=== PATIENT | female | born 1945 | race African-American/Black ===

== ENCOUNTER 2023-09-25 15:24 | Inpatient (IN) | payer MEDICARE, SELFPAY ==
[2023-09-25] VITALS (12 sets, daily range): BP systolic 109–146; BP diastolic 60–85; PULSE 99–115; RESP 16–30; TEMP 36.7–37.1; O2SAT 86–100
--- NOTE | ~2023-09-25 | XR_ITS ---
EXAMINATION: XR barium swallow modified DATE: 09/28/2023 14:43 INDICATION: Transient ischemic attack. TECHNIQUE: The patient was given barium-containing material of multiple consistencies to swallow by t crystal speech pathologist while I performed fluoroscopy. Fluoroscopy exposure time was 1.6 minutes. The n umber of fluoroscopy images saved to the PACS was 1. Dose-area product was 1.017 Gy-cm^2. FINDINGS: There is vallecular residue with pudding. IMPRESSION: 1. No aspiration. 2. Please refer to the speech therapy report for recommendations. Reviewed, dictated and finalized at location A.
--- NOTE | ~2023-09-25 | CT_ITS ---
EXAMINATION: CTA chest PE protocol DATE: 09/25/2023 17:45 INDICATION: Tachycardia post hip replacement with COVID TECHNIQUE: Computed tomography (CT) pulmonary angiogram of the chest was performed with 100 mL Omnipa que-350 intravenous contrast. Additional 3D reconstructions utilizing coronal maximum intensity proje ction (MIP) were performed. Automated exposure control and iterative reconstruction technique were em ployed. The dose-length product was 166.42 mGy-cm. COMPARISON: None FINDINGS: No pulmonary embolism. There is a wedge-shaped region of consolidation with volume loss in the provider relations consultant ior posterior basilar segment of the right lower lobe and favor atelectasis over pneumonia. 6 mm inde terminate pulmonary nodule in the inferior right upper lobe. There is additional ill-defined 1.5-2 cm region of groundglass opacity more cephalad in the posterior segment of the right upper lobe. Linear band of discoid atelectasis/scarring in the left lower lobe. No pulmonary edema or pleural effusion. Heart size is normal. Atherosclerotic coronary artery calcifications. Aortic valve calcification. Th oracic aorta is normal in caliber with no dissection. There is prominent atherosclerotic calcificatio n with 70% stenosis along the normal anatomic variant retroesophageal aberrant right subclavian arter y. Visualized upper abdomen is unremarkable. Mild S-shaped curvature of the thoracic spine with mild spondylosis. Chronic appearing T9 compression fracture. IMPRESSION: 1. No pulmonary embolism. 2. Atelectasis with collapse of the posterior basilar segment of the right lower lobe and discoid ate lectasis in the left lower lobe. 3. Indeterminate 6 mm solid nodule and 1.5-2 cm groundglass nodule in the right upper lobe. Recommend 6 month follow-up low-dose noncontrast chest CT. 4. 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 Reviewed, dictated and finalized at location A. IMPRESSION: 1. No pulmonary embolism. 2. Atelectasis with collapse of the posterior basilar segment of the right lowe r lobe and discoid atelectasis in the left lower lobe. 3. Indeterminate 6 mm solid nodule and 1.5-2 cm groundglass nodule in the right upper lobe. Recommend 6 month follow-up low-dose noncontrast chest CT. 4. 70% stenosis along the anatomic variant retroesophageal aberrant right subcl trent artery.
--- NOTE | ~2023-09-25 | MR_ITS ---
MRI of the brain Clinical History: Weakness Technique: Axial and sagittal T1-weighted images were acquired. These were followed by axial T2-weigh scott, diffusion weighted, gradient, and FLAIR images. Findings: There is no acute infarct, acute intracranial hemorrhage, or mass lesion. Focal old right f rontal lobe infarct noted. There are moderate chronic microvascular ischemic changes in the periventr icular white matter bilaterally. Ventricles and subarachnoid spaces are unremarkable. Orbits are unremarkable. Paranasal sinuses and m astoid air cells are essentially clear. Major intracranial flow voids are grossly intact. There is severe degenerative spondylosis of the visualized cervical spine. Sagittal midline structure s otherwise are intact. IMPRESSION: No acute abnormality. 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 Severe degenerative spondylosis of the visualized cervical spine, with probable multilevel spinal can al stenosis throughout the cervical spine. Consider dedicated C-spine MR to further evaluate, as shaw cated. Reviewed, dictated and finalized at location M. IMPRESSION: No acute abnormality. 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 Severe degenerative spondylosis of the visualized cervical spine, with probable multilevel spinal canal stenosis throughout the cervical spine. Consider dedic ated C-spine MR to further evaluate, as indicated.
--- NOTE | ~2023-09-25 | CT_ITS ---
EXAMINATION: CT brain wo con DATE: 09/28/2023 10:36 INDICATION: Left hemiparesis. TECHNIQUE: Computed tomography (CT) of the head was performed without intravenous contrast. The mA wa s adjusted according to patient size. Iterative reconstruction technique was employed. The dose-lengt h product was 605.33 mGy-cm. COMPARISON: Brain MRI 09/27/2023 FINDINGS: There are scattered areas of low attenuation in the cerebral white matter, which is within normal limits for the patient's age. There is an old infarct in right frontal lobe. The ventricles ar e normal in size. There are likely changes of ocular lens replacement surgeries. There is mucosal thi ckening in the paranasal sinuses. There is thickening and sclerosis of the rm of left sphenoid sin us, consistent with chronic sinusitis. 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 The mastoid a ir cells are normal. There is cerumen in the external auditory canals. IMPRESSION: 1. 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 Reviewed, dictated and finalized at location A.
--- NOTE | ~2023-09-25 | XR_ITS ---
4 VIEWS SKULL Ordering provider: Fabio Gotti MD History: . MRI CLEARENCE . Comparison: None. FINDINGS: BONES: No fracture. Low sinuses in the frontal bone area most likely venous lakes. RADIO OPAQUE FOREIGN BODY: Metallic Foreign bodies seen in the left frontal area most likely in the s calp. SOFT TISSUES: Normal. IMPRESSION: Metallic Foreign bodies seen in the left frontal area most likely in the scalp. Reviewed, dictated and finalized at location A.
--- NOTE | ~2023-09-25 | XR_ITS ---
EXAMINATION: XR chest 1V portable DATE: 09/25/2023 16:08 INDICATION: Tachycardia TECHNIQUE: frontal view of the chest was obtained. COMPARISON: None FINDINGS: Linear discoid atelectasis in the left lower lung zone. Oblique wedge-shaped opacity medial right mid to lower lung zone most likely additional atelectasis/scarring although difficult to exclude superim posed pneumonia. No pulmonary edema, pleural effusion or pneumothorax. The cardiomediastinal silhouet te is within normal limits accounting for slight rightward rotation of the patient. IMPRESSION: 1. Wedge-shaped region of consolidation in the right mid to lower lung zone most likely atelectasis a lthough difficult to exclude superimposed pneumonia. Reviewed, dictated and finalized at location A. IMPRESSION: 1. Wedge-shaped region of consolidation in the right mid to lower lung zone mos t likely atelectasis although difficult to exclude superimposed pneumonia.
--- NOTE | ~2023-09-25 | CT_ITS ---
EXAMINATION: CTA BRAIN/CAROTID DATE: 09/29/2023 18:19 INDICATION: Strokelike symptoms with intermittent episodes of left-sided facial droop TECHNIQUE: Computed tomographic angiography (CTA) of the head and neck was performed with 100 mL Omni paque-350 intravenous contrast. Multiplanar reconstructions and maximum intensity projection 3D-recon structions of the carotid arteries and of the intracranial arteries were created by the technologist on a separate workstation. Precontrast CT of the head was also obtained. Automated exposure control and iterative reconstruction technique were employed.The dose-length product was 1511.33 mGy-cm. COMPARISON: 09/28/2023 FINDINGS: Carotid arteries: There is small amount of atherosclerotic plaque with 0% stenosis of the right carotid bulb relative t o normal distal artery lumen diameter (NASCET criteria). There is however adherent intraluminal throm bus attached to the atherosclerotic calcification at the carotid bulb which extends 2.8 cm craniocaud ally along the axis of the vessel and measures up to 4 x 4 mm orthogonal dimensions. There is 75% hiro nosis of the left carotid bulb relative to normal distal artery lumen diameter. Ectatic ascending tho racic aorta measuring up to 4.0 cm. Prominent calcified atherosclerotic plaque at the proximal aspect of an aberrant retroesophageal right subclavian artery with 80-90% stenosis. The left vertebral shell ry occludes near its origin and appears to reconstitute by collaterals at the level of the mid cervic al spine. 1.5 cm groundglass nodule with central cavitation in the right upper lobe. Cervical kyphosi s with severe spondylosis. Head: Small focus of encephalomalacia in the right frontal lobe consistent with old infarct. More posterior in the right frontoparietal region is a small region demonstrating loss of amezcua-white matter differe ntiation which is new since the prior study consistent with acute infarct. No acute intracranial hemo rrhage or abnormal extra axial fluid collection. There is mild scattered white matter hypoattenuation consistent with chronic small vessel ischemic disease. Ventricles are normal and symmetric. No mass /mass effect. Changes of bilateral intraocular lens replacement. The orbits and mastoid air cells are normal. Opacification of the left sphenoid with thickened and sclerotic rm consistent with acute on chronic sinusitis. There is dependently layering fluid/mucus in the left maxillary sinus also cons istent with acute sinusitis. Osteoma in the left ethmoid sinus. Intracranial arteries There is extensive atherosclerotic plaque with no hemodynamically significant stenosis at the bilater al carotid siphons. The right vertebral artery is dominant with diminutive left vertebral artery. The re are no aneurysms identified. The bilateral A1 and right P1 segments are patent. The left posterior cerebral artery is supplied via a patent left posterior communicating artery. There is abrupt occlus ion of a branch of the right middle cerebral artery extending to the region of the previous noted acu te infarct likely secondary to embolized thrombus. Cerebral arterial arborization appears otherwise s ymmetric. IMPRESSION: 1. Small amount of atherosclerotic plaque with 0% stenosis of the right carotid bulb relative to norm al distal artery lumen diameter (NASCET criteria). There is however a 2.8 x 0.4 x 0.4 cm intraluminal thrombus adherent to the plaque which extends distally along the right internal carotid artery and l ikely represents the etiology of thrombus occluding a branch of the right middle cerebral artery with associated acute infarct in the right frontoparietal region. Dr. Weaver discussed these findings w ynes Torrez at 6:35 PM. 2. 75% stenosis of the left carotid bulb relative to normal distal artery lumen diameter. 3. 80-90% stenosis at the proximal aspect of an aberrant retroesophageal right subclavian artery. 4. O
--- NOTE | 2023-09-25 15:39 | ECG_ITS ---
Test Date: 2023-09-25 15:44:51 Measurements Intervals [place] Rate: 114 P: 61 IL: 100 QRS: 30 QRSD: 79 T: 71 QT: 312 QTc: 430 Interpretive Statements SINUS TACHYCARDIA WITH SHORT IL INTERVAL BASELINE ARTIFACT- I, II, III, AVR, AVL, AVF, 1-V6 ABNORMAL ECG No previous ECG available for comparison Electronically Signed On 09-25-2023 15:54:31 CDT by Reji Vogel D.O.
--- NOTE | 2023-09-25 16:16 | ED.GENADULT ---
HPI - General Adult General Chief complaint: Weakness Stated complaint: low O2 sats, lethargy Time Seen by Provider: 09/25/23 16:09 History of Present Illness HPI narrative: 78-year-old female with history of Lambert's esophagitis, COPD, osteopenia, malnutrition presenting to the emergency department for evaluation for worsening shortness of breath. Patient had a recent hip replacement 09/08, patient was diagnosed with COVID on 09/21 Patient denies chest pain but does report worsening shortness of breath and does complain of left hip pain. Related Data Home Medications Medication Instructions Recorded Confirmed Iron 100 Plus 65 mg BYMOUTH DAILY 09/21/23 09/25/23 acetaminophen 325 mg tablet 650 mg PO Q4H PRN Pain (Scale 09/21/23 09/25/23 Score 1-3) albuterol sulfate 90 mcg/actuation 2 puff inhalation Q4H PRN 09/21/23 09/25/23 aerosol inhaler Shortness Of Breath aluminum-mag hydroxide-simethicone 20 ml PO Q6H PRN Indigestion 09/21/23 09/25/23 200 mg-200 mg-20 mg/5 mL oral susp apixaban 2.5 mg tablet 2.5 mg PO BID 09/21/23 09/25/23 calcium carbonate 500 mg-vitamin 1 tablet PO BID 09/21/23 09/25/23 D3 10 mcg (400 unit) tablet (Calcium 500 With D) cholecalciferol (vitamin D3) 125 125 mcg PO DAILY 09/21/23 09/25/23 mcg (5,000 unit) tablet fluticasone propionate 50 2 spray intranasal DAILY 09/21/23 09/25/23 mcg/actuation nasal spray,suspension glycopyrrolate 9 mcg-formoterol 2 puff inhalation BID 09/21/23 09/25/23 4.8 mcg HFA aerosol inhaler mirtazapine 7.5 mg tablet 7.5 mg PO HS 09/21/23 09/25/23 multivitamin 1 tablet PO DAILY 09/21/23 09/25/23 omeprazole 20 mg capsule,delayed 20 mg PO DAILY 09/21/23 09/25/23 release oxycodone 5 mg tablet 2.5 mg PO Q6H PRN Pain 09/21/23 09/25/23 pantoprazole 40 mg tablet,delayed 40 mg PO QAM 09/21/23 09/25/23 release polyethylene glycol 3350 17 gram 17 g PO BID 09/21/23 09/25/23 oral powder packet (Miralax) sennosides 17.2 mg tablet 17.2 mg PO BID 09/21/23 09/25/23 vitamin E 100 unit capsule 100 unit PO DAILY 09/21/23 09/25/23 Allergies Allergy/AdvReac Type Severity Reaction Status Date / Time No Known Allergies Allergy Verified 09/21/23 21:35 Review of Systems Review of Systems: All systems reviewed & are unremarkable except as noted in HPI and below PMFSH Family History Family History Mother Hypertension Asthma Cancer Glaucoma Father Cancer Hypertension Diabetes mellitus Social History Social History Smoking status: Former smoker Alcohol intake: never Substance use: never Do You Feel Safe in your Home?: Yes Lack of Transportation: No Lack of Food: Never True Current Housing: I Have Housing Concerned About Future Housing: No Difficulty Paying Gas/Electric Bills: No Difficulty Paying for Meds: No Currently Unemployed: No Education: Bachelor's Degree Difficulty w/ Childcare or Family Care: No Spiritual care concerns: No Course Course Emergency Course: Patient was admitted to the hospitalist Vital Signs Vital signs: Vital Signs Temperature 98.7 F 09/25/23 15:24 Pulse Rate 115 H 09/25/23 15:24 Respiratory Rate 27 H 09/25/23 15:24 Blood Pressure 135/85 09/25/23 15:24 Pulse Oximetry 96 09/25/23 15:24 Oxygen Delivery Room Air 09/25/23 15:24 Temperature 98.1 F 09/25/23 19:36 Pulse Rate 103 H 09/25/23 19:36 Respiratory Rate 16 09/25/23 19:36 Blood Pressure 109/67 09/25/23 19:36 Pulse Oximetry 100 09/25/23 19:53 Oxygen Delivery Nasal Cannula 09/25/23 19:53 Oxygen Flow Rate 2 09/25/23 19:53 Medical Decision Making MDM Narrative Medical decision making narrative: 78-year-old female present to the emergency department for evaluation for worsening shortness of breath. Patient is afebrile but does have leukocytosis of 12.2 and hemoglobin of 8.2, th
[2023-09-25 17:06] LABS: Basophils Absolute Auto 0.1 K/mm3 (0.0-0.1); Basophils Percent Auto 0.7 % (0.2-1.2); Eosinophils Absolute Auto 0.2 K/mm3 (0-0.3); Hematocrit 25.5 % (37.0-47.0); Hemoglobin 8.2 g/dL (12.0-15.0); Immature Granulocyte Absolute 0.52 K/mm3 (0.00-0.031); Immature Granulocyte Percent A 4.3 % (0-0.5); Lymphocytes Absolute Auto 1.38 K/mm3 (0.9-3.2); Lymphocytes Percent Auto 11.3 % (18.3-44.2); Mean Corpuscular HGB Conc 32.2 g/dl (32-36); Mean Corpuscular Hemoglobin 25.6 pg (26-34); Mean Corpuscular Volume 79.7 fl (80-100); Mean Platelet Volume 8.9 fl (7.4-10.4); Monocytes Absolute Auto 1.3 K/mm3 (0.1-0.6); Monocytes Percent Auto 10.3 % (2.6-8.5); Neutrophils Absolute Auto 8.7 K/mm3 (1.3-6.7); Neutrophils Percent Auto 71.4 % (45.5-73.1); Platelet Count Result 301 k/mm3 (150-375); Red Cell Distribution Width 24.2 % (11.5-14.5); White Blood Count 12.2 K/mm3 (4.5-10.0)
[2023-09-25 17:14] LABS: Alanine Aminotransferase 36 U/L (6-35); Albumin Level 3.5 g/dL (3.5-5.1); Alkaline Phosphatase 105 U/L (38-126); Anion Gap 10 mmol/L (4-12); Aspartate Amino Transferase 54 U/L (14-36); Bilirubin,Total 0.6 mg/dL (0.2-1.3); Blood Urea Nitrogen 7 mg/dL (7-17); Calcium 8.6 mg/dL (8.4-10.2); Carbon Dioxide 23 mmol/L (22-30); Chloride 100 mmol/L (98-107); Estimated CRCL calculation 44 ml/min; Estimated Glomerular Filt Rate > 60; Glucose 83 mg/dL (65-110); Potassium 4.7 mmol/L (3.4-5.0); Sodium 133 mmol/L (137-145)
[2023-09-25 17:42] LABS: Platelet Estimate Adequate (Adequate); Schistocytes None Seen
[2023-09-25 17:43] LABS: Anisocytosis 3+; Hypochromasia 1+
[2023-09-25] MEDS: HYDROcodone/acetaminophen (*CRX) 5-325 MG TABLET 1 TAB PO (17:44)
[2023-09-25] MEDS: dexAMETHasone 2 MG TABLET 6 MG PO (18:53)
--- NOTE | 2023-09-25 19:00 | PC.NURSE ---
tried calling report at this time and was instructed to call back after shift change
[2023-09-25 19:16] LABS: Influenza A QL RT-PCR Negative (Negative); Influenza B QL RT-PCR Negative (Negative); RSV RNA, RT-PCR Negative (Negative); SARS-CoV-2 RNA PCR Positive (Negative)
--- NOTE | 2023-09-25 19:38 | ADMGEN ---
This patient, Maryann Rodriguez, was admitted to Medical Room 254-01. Patient/family oriented to hospital policies and general routines including ID bracelet, bed and alarms, visiting hours, pain management, procedures, bathroom and other care routines, personal items, smoking policy, room service/diet, and visiting hours. Information on how to activate the Rapid Response Team has been discussed. Patient/Family are encouraged to report perceived risks to care and to ask questions if they do not understand what they are told or what they should do.
[2023-09-25] MEDS: AZITHROMYCIN 500 MG/NS 250 ML 500 MG/250 ML BAG 250 MG IVPB (19:59)
--- NOTE | 2023-09-25 21:52 | PM.IMHP ---
H&P: HPI History of Present Illness Date/Time: 09/25/23 23:00 Chief Complaint: Hypoxia. Narrative: This is a pleasant 78-year-old female with chronic obstructive pulmonary disease, Lambert esophagus, gastroesophageal reflux disease, hypertension, and iron deficiency anemia who presented to the emergency department via EMS from [facility] for evaluation of hypoxia. The patient provides the following history. She broke her left hip in a fall on 09/09/2023 which was repaired with hemiarthroplasty at [facility]. During that stay she was also treated for right lower lobe pneumonia and a urinary tract infection. She was discharged to rehab on 09/21/2023 and was diagnosed with COVID the following day. She was reportedly asymptomatic until today she developed respiratory distress and was hypoxic with an SpO2 in the 70s and she was brought in for evaluation. She denies fever, headache, sinus congestion, sore throat, cough, chest pain, pleuritic pain, nausea, vomiting, diarrhea, lower extremity edema, and calf pain. In the ED: She was afebrile on arrival and she is currently requiring 2 L nasal cannula to maintain her SpO2 in the upper 90s. She has been in a sinus tachycardia with rates in the low 100s. Blood pressures have been stable. SARS-CoV-2 by PCR was indeed positive. Labs were significant for a WBC count of 12.2, hemoglobin 8.2, sodium 133, BUN 7, creatinine 0.60, AST 54, ALT 36. Chest CTA showed no evidence of pulmonary embolism but did show atelectasis with collapse of the posterior basal segment of the right lower lobe discoid atelectasis in the left lower lobe. Indeterminate 6 mm solid nodule and 1.5 to 2 cm ground-glass nodule in the right upper lobe were also noted. She was started on dexamethasone, remdesivir, and antibiotics for possible concomitant bacterial pneumonia and she is being admitted in this setting for further treatment. At the time my evaluation she is feeling a bit better. Review of Systems Review of Systems: 12 systems were reviewed and are negative except for as per HPI. [facility] Past Medical History Medical History (Updated 09/25/23 @ 23:44 by Rosio Chan PA-C) Lambert esophagus Chronic obstructive pulmonary disease Gastroesophageal reflux disease Hypertension Iron deficiency anemia Right upper lobe pulmonary nodule (09/25/23) 6 mm solid nodule and 1.5 to 2 cm ground-glass nodule in the right upper lobe. Sickle cell trait Surgical History Surgical History (Updated 09/25/23 @ 23:42 by Rosio Chan PA-C) History of appendectomy History of bilateral cataract extraction History of left hip hemiarthroplasty (08/2023) Family History Family History Mother Hypertension Asthma Cancer Glaucoma Father Cancer Hypertension Diabetes mellitus Social History Social History (Updated 09/25/23 @ 23:44 by Rosio Chan PA-C) Social History: Surrogate medical decision maker: Julieth Rodriguez, daughter. Code status: Full code. Smoking status: Former smoker Alcohol intake: never Substance use: never Do You Feel Safe in your Home?: Yes Lack of Transportation: No Lack of Food: Never True Current Housing: I Have Housing Concerned About Future Housing: No Difficulty Paying Gas/Electric Bills: No Difficulty Paying for Meds: No Currently Unemployed: No Education: Bachelor's Degree Difficulty w/ Childcare or Family Care: No Spiritual care concerns: No Meds Home Medications and Allergies Home Medications Medication Instructions Recorded Confirmed Type Iron 100 Plus 65 mg BYMOUTH DAILY 09/21/23 09/25/23 History acetaminophen 325 mg tablet 650 mg PO Q4H PRN Pain (Scale 09/21/23 09/25/23 History Score 1-3) albuterol sulfate 90 mcg/actuation 2 puff inhalation Q4H PRN 09/21/23 09/25/23 History aerosol inhaler Shortness Of Breath aluminum-mag hydroxide-simethicone 20 ml PO Q6H P
[2023-09-25] MEDS: REMDESIVIR 200 MG/NS 250 ML 200 MG/250 ML BAG 250 MG IVPB (22:37)
[2023-09-26] VITALS (14 sets, daily range): BP systolic 118–138; BP diastolic 65–77; PULSE 81–111; RESP 16–22; TEMP 36.3–36.6; O2SAT 97–100; BMI 15.1
[2023-09-26 01:30] LABS: MRSA (PCR) NOT DETECTED (NOT DETECTE)
[2023-09-26 05:24] LABS: Hemoglobin 8.4 g/dL (12.0-15.0); Mean Corpuscular HGB Conc 32.3 g/dl (32-36); Mean Corpuscular Hemoglobin 25.7 pg (26-34); Mean Corpuscular Volume 79.5 fl (80-100); Mean Platelet Volume 8.7 fl (7.4-10.4); Platelet Count Result 278 k/mm3 (150-375); Red Blood Count 3.27 M/mm3 (4.2-5.4); Red Cell Distribution Width 23.4 % (11.5-14.5); White Blood Count 8.6 K/mm3 (4.5-10.0)
[2023-09-26 05:35] LABS: Alanine Aminotransferase 34 U/L (6-35); Albumin Level 3.4 g/dL (3.5-5.1); Alkaline Phosphatase 109 U/L (38-126); Anion Gap 8 mmol/L (4-12); Aspartate Amino Transferase 39 U/L (14-36); Bilirubin,Total 0.3 mg/dL (0.2-1.3); Blood Urea Nitrogen 10 mg/dL (7-17); CRP 7.6 mg/dL (<1.0); Calcium 8.7 mg/dL (8.4-10.2); Carbon Dioxide 27 mmol/L (22-30); Chloride 99 mmol/L (98-107); Estimated CRCL calculation 39 ml/min; Estimated Glomerular Filt Rate > 60; Glucose 137 mg/dL (65-110); Lactate Dehydrogenase 326 U/L (120-246); Magnesium 1.8 mg/dL (1.6-2.3); Potassium 4.6 mmol/L (3.4-5.0); Sodium 134 mmol/L (137-145)
[2023-09-26 06:46] LABS: Appearance Urine Clear (Clear); Bacteria Urine None Seen /hpf; Bilirubin Urine Negative (Negative); Blood Urine Negative (Negative); Color Urine Yellow (Yellow); Glucose Urine UA Negative (Negative); Ketones Urine Negative (Negative); Leukocyte Esterase Ur Negative LEU/UL (Negative); Nitrate Urine Negative (Negative); Non Pathogenic Casts 0-2; Protein Urine Trace mg/dL (Negative); RBC Urine 0-2 /hpf (0-2); Specific Grav Ur > 1.045 (1.001-1.035); Squamous Epithelial Cell Urine None Seen /hpf (Few); Urobilinogen Urine 0.2 mg/dL (<2.0); WBC Urine 0-5 /hpf (0-3)
[2023-09-26 07:04] LABS: Add Urine Microscopic? YES
--- NOTE | 2023-09-26 07:54 | PM.IMPN ---
Progress Note: A&P Assessment and Plan (1) Acute respiratory failure with hypoxia: Code(s): J96.01 - Acute respiratory failure with hypoxia Status: Acute (2) Chronic obstructive pulmonary disease: Code(s): J44.9 - Chronic obstructive pulmonary disease, unspecified Status: Acute (3) COVID: Code(s): U07.1 - COVID-19 Status: Acute (4) Iron deficiency anemia: Code(s): D50.9 - Iron deficiency anemia, unspecified Status: Acute Plan This is a pleasant 78-year-old female with chronic obstructive pulmonary disease, Lambert esophagus, gastroesophageal reflux disease, hypertension, and iron deficiency anemia who presented to the emergency department via EMS from [facility] for evaluation of hypoxia. The patient provides the following history. She broke her left hip in a fall on 09/09/2023 which was repaired with hemiarthroplasty at [facility]. During that stay she was also treated for right lower lobe pneumonia and a urinary tract infection. She was discharged to rehab on 09/21/2023 and was diagnosed with COVID the following day. She was reportedly asymptomatic until 09/24 she developed respiratory distress and was hypoxic with an SpO2 in the 70s and she was brought in for evaluation. Acute respiratory failure, COPD exacerbation Patient has dyspnea, upon arrival, patient found hypoxemia, patient was on high-flow oxygen in Patient has a history of COPD, conformed COVID infection recently, Patient is found have leukocytosis, CT scan suggest atelectasis bilateral lower lobes Suspecting COPD exacerbation due to COVID infection and possible pneumonia versus better bronchitis Will continue azithromycin and ceftriaxone IV Continue remdesivir IV Start DuoNeb scheduled and albuterol nebulizer. Continue dexamethasone . 6 mg IV daily Continue O2 therapy to keep pulse ox above 92 CT scan reports Indeterminate 6 mm solid nodule and 1.5-2 cm groundglass nodule in the right upper lobe. 6 month follow-up low-dose noncontrast chest CT per PCP, I have discussed with patient about the finding chronic anemia likely worse from recent surgery. Hemoglobin is improving and will be monitored. Continue iron supplementation. Blood pressures have been stable. Oxygen will be weaned as tolerated. Her home medications will be reviewed and resumed as appropriate. Patient on Eliquis 2.5 mg b.i.d. p.o. for DVT prophylaxis Subjective Date/time seen: 09/26/23 07:54 Interval history: I saw exam patient today. Patient feels tired, has cough with scant phlegm, dyspnea is improving. Patient afebrile, blood pressure stable Exam Narrative: GENERAL: Pleasant, in no acute distress. Well-nourished. - EYES: EOMI. Anicteric. - HENT: Moist mucous membranes. - LUNGS: Coarse breath sound bilateral base . - CARDIOVASCULAR: Regular rate and rhythm. No murmur. No JVD. - ABDOMEN: Soft, non-tender and non-distended. No palpable masses. - EXTREMITIES: No edema. Peripheral pulses 2+. Non-tender. - NEUROLOGIC: No focal neurological deficits. CN II-XII grossly intact. General weakness - PSYCHIATRIC: Awake, Alert and oriented x 3. Appropriate mood and affect. - SKIN: No rashes or lesions. Warm. - LYMPH: No cervical lymphadenopathy. Objective Data Vital Signs Vital Signs: Vital Signs - 24 hr 09/25/23 15:24 09/25/23 15:50 09/25/23 17:01 Temperature 98.7 F Pulse Rate 115 H 112 H Respiratory Rate 27 H Blood Pressure 135/85 Pulse Oximetry 96 92 Oxygen Delivery Room Air Room Air Oxygen Flow Rate 09/25/23 15:46 09/25/23 16:01 09/25/23 17:17 Temperature Pulse Rate 114 H 111 H 109 H Respiratory Rate 30 H 22 H 30 H Blood Pressure 146/75 H 137/80 140/76 Pulse Oximetry 92 Oxygen Delivery Oxygen Flow Rate 09/25/23 17:39 09/25/23 17:30 09/25/23 18:56 Temperature Pulse Rate 111 H Respiratory Rate 26 H Blood Pressure 112/60 Pulse Oximetry 100 86 L
[2023-09-26] MEDS: CHOLECALCIFEROL 5,000 UNITS TABLET 5000 UNITS PO (08:22)
[2023-09-26] MEDS: CALCIUM/VITAMIN D 500 MG/5 MCG (200 I.U.) TABLET PO ×2 (08:22→16:54)
[2023-09-26] MEDS: APIXABAN 2.5 MG TABLET PO ×2 (08:22→20:24)
[2023-09-26] MEDS: guaiFENesin 12 HR 600 MG TABCR PO ×2 (08:23→20:24)
[2023-09-26] MEDS: MULTIVITAMINS THERAPEUTIC TAB (*BKC) 1 TABLET PO (08:23)
[2023-09-26] MEDS: PANTOPRAZOLE 40 MG TABLET PO (08:24)
[2023-09-26] MEDS: VITAMIN E 100 UNIT CAPSULE PO (08:24)
[2023-09-26] MEDS: dexAMETHasone SOD PHOS INJ 10 MG/ML 1 ML VIAL 6 MG IV PUSH (08:32)
[2023-09-26 08:41] LABS: Ferritin > 2000.00 ng/mL (11.1-264)
--- NOTE | 2023-09-26 10:29 | PCRCNOTE ---
Window of time for administration has passed. See next scheduled administration.
[2023-09-26] MEDS: ACETAMINOPHEN 325 MG TABLET 650 MG PO (10:30)
[2023-09-26] MEDS: FLUTICASONE PROPIONATE 0.05% NA SPR 16 GM BTL (*BKC) 2 SPRAY NASAL (10:31)
[2023-09-26] MEDS: IPRATROPIUM 0.5 MG/ALBUTEROL SULFATE 2.5 MG AMPUL.NEB 3 ML INHALATION ×2 (13:25→22:19)
[2023-09-26] MEDS: FERROUS GLUCONATE 324 MG TABLET BY MOUTH (15:27)
[2023-09-26] MEDS: polyethylene glycoL 3350 17 GM POWD.PACK PO (16:55)
[2023-09-26] MEDS: AZITHROMYCIN 500 MG/NS 250 ML 500 MG/250 ML BAG 250 MG IVPB (17:01)
[2023-09-26] MEDS: MIRTAZAPINE 7.5 MG TABLET PO (20:24)
[2023-09-26] MEDS: REMDESIVIR 100 MG/NS 250 ML 100 MG/250 ML BAG 250 MG IVPB (21:13)
[2023-09-27] VITALS (17 sets, daily range): BP systolic 121–140; BP diastolic 66–75; PULSE 79–107; RESP 16–22; TEMP 36.5–36.8; O2SAT 96–100
[2023-09-27] MEDS: IPRATROPIUM 0.5 MG/ALBUTEROL SULFATE 2.5 MG AMPUL.NEB 3 ML INHALATION ×4 (02:41→20:46)
[2023-09-27 05:20] LABS: Alanine Aminotransferase 31 U/L (6-35); Albumin Level 3.4 g/dL (3.5-5.1); Alkaline Phosphatase 107 U/L (38-126); Aspartate Amino Transferase 35 U/L (14-36); Bilirubin,Total 0.3 mg/dL (0.2-1.3); INR 1.3; Prothrombin Time 17.1 Seconds (11.1-14.7)
[2023-09-27] MEDS: UMECLIDINIUM/VILANTEROL 62.5-25 MCG ELLIPTA 1 PUFF INHALATION (07:35)
--- NOTE | 2023-09-27 07:51 | PM.IMPN ---
Progress Note: A&P Assessment and Plan (1) Acute respiratory failure with hypoxia: Code(s): J96.01 - Acute respiratory failure with hypoxia Status: Acute (2) Chronic obstructive pulmonary disease: Code(s): J44.9 - Chronic obstructive pulmonary disease, unspecified Status: Acute (3) COVID: Code(s): U07.1 - COVID-19 Status: Acute (4) Iron deficiency anemia: Code(s): D50.9 - Iron deficiency anemia, unspecified Status: Acute Plan This is a pleasant 78-year-old female with chronic obstructive pulmonary disease, Lambert esophagus, gastroesophageal reflux disease, hypertension, and iron deficiency anemia who presented to the emergency department via EMS from [facility] for evaluation of hypoxia. The patient provides the following history. She broke her left hip in a fall on 09/09/2023 which was repaired with hemiarthroplasty at [facility]. During that stay she was also treated for right lower lobe pneumonia and a urinary tract infection. She was discharged to rehab on 09/21/2023 and was diagnosed with COVID the following day. She was reportedly asymptomatic until 09/24 she developed respiratory distress and was hypoxic with an SpO2 in the 70s and she was brought in for evaluation. Acute respiratory failure, COPD exacerbation Patient has dyspnea, upon arrival, patient found hypoxemia, patient was on high-flow oxygen in Patient has a history of COPD, conformed COVID infection recently, Patient is found have leukocytosis, CT scan suggest atelectasis bilateral lower lobes Suspecting COPD exacerbation due to COVID infection and possible pneumonia versus better bronchitis continue azithromycin and ceftriaxone IV Continue remdesivir IV c/w DuoNeb scheduled and albuterol nebulizer. Continue dexamethasone . 6 mg IV daily Continue O2 therapy to keep pulse ox above 92 CT scan reports Indeterminate 6 mm solid nodule and 1.5-2 cm groundglass nodule in the right upper lobe. 6 month follow-up low-dose noncontrast chest CT per PCP, I have discussed with patient about the finding chronic anemia likely worse from recent surgery. Hemoglobin is improving and will be monitored. Continue iron supplementation. Right hand weakness Patient patient noticed weakness of right hand yesterday Need to rule out ACS ordered brain MRI without contrast today. 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 Consult neurologist for evaluation Neuro check q.4 hours Patient is on blood thinner now Blood pressures have been stable. Her home medications will be reviewed and resumed as appropriate. Patient on Eliquis 2.5 mg b.i.d. p.o. for DVT prophylaxis Consult PT OT healthcare technician for evaluation and assisting placement May discharge patient 1-2 days you patient condition continue to improve Subjective Date/time seen: 09/27/23 07:51 Interval history: I saw exam patient today. Patient patient complained of weakness of left hand, that started about yesterday, please showed has dry cough denies dyspnea. Patient denies headache, numbness, difficulty with speaking. Patient afebrile, blood pressure stable Exam Narrative: GENERAL: Pleasant, in no acute distress. Well-nourished. - EYES: EOMI. Anicteric. - HENT: Moist mucous membranes. - LUNGS: Coarse breath sound bilateral base . - CARDIOVASCULAR: Regular rate and rhythm. No murmur. No JVD. - ABDOMEN: Soft, non-tender and non-distended. No palpable masses. - EXTREMITIES: No edema. Peripheral pulses 2+. Non-tender. - NEUROLOGIC: No focal neurological deficits. CN II-XII grossly intact. General weakness. Strength of left hand is weaker than the right - PSYCHIATRIC: Awake, Alert and oriented x 3. Appropriate mood and affect. - SKIN: Left hip surgical wound dry and clean - LYMPH: No cervical lymphadenopathy. Objective Data Vital Signs Vital Signs:
[2023-09-27 09:10] LABS: Anion Gap 11 mmol/L (4-12); Blood Urea Nitrogen 16 mg/dL (7-17); Carbon Dioxide 25 mmol/L (22-30); Chloride 101 mmol/L (98-107); Estimated CRCL calculation 32 ml/min; Estimated Glomerular Filt Rate > 60; Glucose 93 mg/dL (65-110); Potassium 3.9 mmol/L (3.4-5.0); Sodium 137 mmol/L (137-145)
[2023-09-27] MEDS: APIXABAN 2.5 MG TABLET PO ×2 (09:11→20:24)
[2023-09-27] MEDS: MULTIVITAMINS THERAPEUTIC TAB (*BKC) 1 TABLET PO (09:11)
[2023-09-27] MEDS: VITAMIN E 100 UNIT CAPSULE PO (09:11)
[2023-09-27] MEDS: CHOLECALCIFEROL 5,000 UNITS TABLET 5000 UNITS PO (09:11)
[2023-09-27] MEDS: PANTOPRAZOLE 40 MG TABLET PO (09:11)
[2023-09-27] MEDS: guaiFENesin 12 HR 600 MG TABCR PO ×2 (09:11→20:23)
[2023-09-27] MEDS: ACETAMINOPHEN 325 MG TABLET 650 MG PO (09:12)
[2023-09-27] MEDS: FLUTICASONE PROPIONATE 0.05% NA SPR 16 GM BTL (*BKC) 2 SPRAY NASAL (09:12)
[2023-09-27] MEDS: CALCIUM/VITAMIN D 500 MG/5 MCG (200 I.U.) TABLET PO ×2 (09:12→17:10)
[2023-09-27] MEDS: dexAMETHasone SOD PHOS INJ 10 MG/ML 1 ML VIAL 6 MG IV PUSH (09:12)
--- NOTE | 2023-09-27 12:51 | WPDNEURCNPN ---
Consult date: 09/27/23 HPI: Maryann Rodriguez is a 78 year old female Admitted to the hospital through the emergency room with ongoing diagnosis of Lambert's esophagitis, COPD, osteopenia, and malnutrition and recent complaint of worsening shortness of breath. Patient was recently diagnosed to have COVID on 09/21 and has had the hip replacement on 09/08 she has been taking multiple medications as outlined, former smoker no alcohol intake or at the time of initial evaluation vital signs were normal except respiration rate of 27 on nasal cannula oxygen CBC was with hemoglobin of 8.2 and BMP with sodium of 133, x-ray of the chest with wedge-shaped region of consolidation in the right mid and lower lung zone raising the possibility of atelectasis and CTA of the chest with 70% stenosis along the anatomic variant re to severe digital aberrant right subclavian artery. She was brought to the ER by the EMS from [facility] her , arthroplasty was done at [facility] where she was also treated for a right lower lobe pneumonia and UTI ,in the ER subsequent chest x-ray ,patient was started on dexamethasone, remdesivir and antibiotic,MRI of the brain has been done on September 27, 2023 which documented old right frontal lobe focal infarct and moderate microvascular ischemic changes incidentally she has been found to have multilevel spinal cord stenosis throughout the cervical spine for which MRI has been suggested, and she will Review of Systems Review of Systems: All systems reviewed & are unremarkable except as noted in HPI and below PMFSH Past Medical History Medical History (Updated 09/25/23 @ 23:44 by Rosio Chan PA-C) Lambert esophagus Chronic obstructive pulmonary disease Gastroesophageal reflux disease Hypertension Iron deficiency anemia Right upper lobe pulmonary nodule (09/25/23) 6 mm solid nodule and 1.5 to 2 cm ground-glass nodule in the right upper lobe. Sickle cell trait Surgical History Surgical History (Updated 09/25/23 @ 23:42 by Rosio Chan PA-C) History of appendectomy History of bilateral cataract extraction History of left hip hemiarthroplasty (08/2023) Family History Family History Mother Hypertension Asthma Cancer Glaucoma Father Cancer Hypertension Diabetes mellitus Social History Social History (Updated 09/25/23 @ 23:44 by Rosio Chan PA-C) Social History: Surrogate medical decision maker: Julieth Rodriguez, daughter. Code status: Full code. Smoking status: Former smoker Alcohol intake: never Substance use: never Do You Feel Safe in your Home?: Yes Lack of Transportation: No Lack of Food: Never True Current Housing: I Have Housing Concerned About Future Housing: No Difficulty Paying Gas/Electric Bills: No Difficulty Paying for Meds: No Currently Unemployed: No Education: Bachelor's Degree Difficulty w/ Childcare or Family Care: No Spiritual care concerns: No Meds Home Medications and Allergies Home Medications Medication Instructions Recorded Confirmed Type Iron 100 Plus 65 mg BYMOUTH DAILY 09/21/23 09/25/23 History acetaminophen 325 mg tablet 650 mg PO Q4H PRN Pain (Scale 09/21/23 09/25/23 History Score 1-3) albuterol sulfate 90 mcg/actuation 2 puff inhalation Q4H PRN 09/21/23 09/25/23 History aerosol inhaler Shortness Of Breath aluminum-mag hydroxide-simethicone 20 ml PO Q6H PRN Indigestion 09/21/23 09/25/23 History 200 mg-200 mg-20 mg/5 mL oral susp apixaban 2.5 mg tablet 2.5 mg PO BID 09/21/23 09/25/23 History calcium carbonate 500 mg-vitamin 1 tablet PO BID 09/21/23 09/25/23 History D3 10 mcg (400 unit) tablet (Calcium 500 With D) cholecalciferol (vitamin D3) 125 125 mcg PO DAILY 09/21/23 09/25/23 History mcg (5,000 unit) tablet fluticasone propionate 50 2 spray intranasal DAILY 09/21/23 09/25/23 History mcg/actuation nasal spray,suspension glycopyrrolate 9 mcg
[2023-09-27] MEDS: FERROUS GLUCONATE 324 MG TABLET BY MOUTH (12:53)
[2023-09-27 13:51] LABS: Basophils Percent Auto 0.1 % (0.2-1.2); Hematocrit 24.5 % (37.0-47.0); Hemoglobin 7.8 g/dL (12.0-15.0); Immature Granulocyte Absolute 0.13 K/mm3 (0.00-0.031); Immature Granulocyte Percent A 1.3 % (0-0.5); Lymphocytes Absolute Auto 0.57 K/mm3 (0.9-3.2); Lymphocytes Percent Auto 5.5 % (18.3-44.2); Mean Corpuscular HGB Conc 31.8 g/dl (32-36); Mean Corpuscular Hemoglobin 25.2 pg (26-34); Mean Corpuscular Volume 79.3 fl (80-100); Mean Platelet Volume 9.3 fl (7.4-10.4); Monocytes Absolute Auto 0.3 K/mm3 (0.1-0.6); Monocytes Percent Auto 2.5 % (2.6-8.5); Neutrophils Absolute Auto 9.3 K/mm3 (1.3-6.7); Neutrophils Percent Auto 90.6 % (45.5-73.1); Platelet Count Result 312 k/mm3 (150-375); Red Blood Count 3.09 M/mm3 (4.2-5.4); Red Cell Distribution Width 23.2 % (11.5-14.5); White Blood Count 10.3 K/mm3 (4.5-10.0)
[2023-09-27 14:16] LABS: Platelet Estimate Adequate (Adequate); Schistocytes None Seen
[2023-09-27 14:17] LABS: Anisocytosis 3+
[2023-09-27 14:18] LABS: Hypochromasia 1+
[2023-09-27] MEDS: AZITHROMYCIN 500 MG/NS 250 ML 500 MG/250 ML BAG 250 MG IVPB (17:56)
[2023-09-27] MEDS: MIRTAZAPINE 7.5 MG TABLET PO (20:24)
[2023-09-27] MEDS: REMDESIVIR 100 MG/NS 250 ML 100 MG/250 ML BAG 250 MG IVPB (21:09)
[2023-09-28] VITALS (17 sets, daily range): BP systolic 113–136; BP diastolic 61–81; PULSE 75–121; RESP 10–21; TEMP 36.6–37.1; O2SAT 98–100
[2023-09-28] MEDS: IPRATROPIUM 0.5 MG/ALBUTEROL SULFATE 2.5 MG AMPUL.NEB 3 ML INHALATION ×2 (02:30→08:20)
[2023-09-28 06:24] LABS: Basophils Percent Auto 0.5 % (0.2-1.2); Eosinophils Percent Auto 0.3 % (0-4.4); Hemoglobin 7.1 g/dL (12.0-15.0); Immature Granulocyte Absolute 0.06 K/mm3 (0.00-0.031); Immature Granulocyte Percent A 0.8 % (0-0.5); Lymphocytes Absolute Auto 1.74 K/mm3 (0.9-3.2); Lymphocytes Percent Auto 22.7 % (18.3-44.2); Mean Corpuscular HGB Conc 32.3 g/dl (32-36); Mean Corpuscular Volume 77.5 fl (80-100); Mean Platelet Volume 8.8 fl (7.4-10.4); Monocytes Percent Auto 13.4 % (2.6-8.5); Neutrophils Absolute Auto 4.8 K/mm3 (1.3-6.7); Neutrophils Percent Auto 62.3 % (45.5-73.1); Platelet Count Result 265 k/mm3 (150-375); Red Blood Count 2.84 M/mm3 (4.2-5.4); Red Cell Distribution Width 22.7 % (11.5-14.5); White Blood Count 7.7 K/mm3 (4.5-10.0)
[2023-09-28 06:47] LABS: Anion Gap 8 mmol/L (4-12); Blood Urea Nitrogen 13 mg/dL (7-17); Calcium 8.7 mg/dL (8.4-10.2); Carbon Dioxide 25 mmol/L (22-30); Chloride 103 mmol/L (98-107); Estimated CRCL calculation 36 ml/min; Estimated Glomerular Filt Rate > 60; Glucose 78 mg/dL (65-110); Potassium 3.6 mmol/L (3.4-5.0); Sodium 136 mmol/L (137-145)
[2023-09-28 07:01] LABS: Hypochromasia 1+; Platelet Estimate Adequate (Adequate)
[2023-09-28 07:02] LABS: Anisocytosis 2+; Schistocytes Rare; Target Cells 1+
--- NOTE | 2023-09-28 07:54 | P.PNIM_ITS ---
Progress Note: A&P Assessment and Plan (1) Acute respiratory failure with hypoxia: Code(s): J96.01 - Acute respiratory failure with hypoxia Status: Acute (2) Chronic obstructive pulmonary disease: Code(s): J44.9 - Chronic obstructive pulmonary disease, unspecified Status: Acute (3) COVID: Code(s): U07.1 - COVID-19 Status: Acute (4) Iron deficiency anemia: Code(s): D50.9 - Iron deficiency anemia, unspecified Status: Acute (5) Malnutrition: Qualifiers: Malnutrition type: protein-calorie malnutrition Protein-calorie malnutrition severity: moderate Qualified Code(s): E44.0 - Moderate protein- calorie malnutrition Code(s): E46 - Unspecified protein-calorie malnutrition Status: Acute (6) Left-sided weakness: Code(s): R53.1 - Weakness Status: Acute Plan Left sided Weakness * 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 Augmentin * CTA showing lower atelectasis and 6 mm nodule of the right upper lobe will need follow-up in 6 months * CTA negative for PE * Sputum cultures pending COVID * Supportive care. * Decadron 6 mg daily * remdesivir for 5 days for patient with high risk for hypoxemia * supplemental oxygen as needed to maintain 90% oxygen saturation * monitor LFTs daily * incentive spirometer while awake * DuoNebs * initiate antibiotic therapy if suspicion of bacterial * guaifenesin scheduled for cough * gentle IV hydration keep patient dry * D-dimer/CTA Negative for PE * PT/OT COPD * Bronchodilators. * CTA atelectasis likely COPD exacerbation with underlying COVID-19 * incentive spirometry while awake. * steroids initiated * azithromycin 500 x 1 day/250 daily * supplemental oxygen therapy to maintain oxygen 92% Anemia * Patient with history of anemia * HGB 7.1 09/28/2023 * Transfuse PRBC if Hgb <7.0 * Drop possibly secondary to recent LT hip Surgery * Continue iron supplements * May need to hold Eliquis 2.5 if hemoglobin continues to drop Malnutrition to the moderate degree secondary to poor protein and calorie intake * Dietitian consult * And protein shakes HX of LT hip fracture surgery 09/09/2023/PT/OT Code status: Full code per patient DVT prophylaxis: Eliquis 2.5 BID Stress ulcer prophylaxis: Protonix 40 daily PT/OT notes: PT/OT pending Disposition: Patient was admitted to the medical unit with acute respiratory failure with hypoxia secondary to COVID-19 and COPD exacerbation will continue with current treatment PT OT for evaluation plan will likely be for patient to return to [facility] services when medically stable. Also doing TIA/Stroke work-up for left sided deficits. Time Spent With Patient Time with patient: 15 - 25 minutes Subjective Date/time seen: 09/28/23 07:54 Interval history: Admission: his is a pleasant 78-year-old female with chronic obstructive pulmonary disease, Lambert esophagus, gastroesophageal ref
--- NOTE | 2023-09-28 07:54 | PM.IMPN ---
Progress Note: A&P Assessment and Plan (1) Acute respiratory failure with hypoxia: Code(s): J96.01 - Acute respiratory failure with hypoxia Status: Acute (2) Chronic obstructive pulmonary disease: Code(s): J44.9 - Chronic obstructive pulmonary disease, unspecified Status: Acute (3) COVID: Code(s): U07.1 - COVID-19 Status: Acute (4) Iron deficiency anemia: Code(s): D50.9 - Iron deficiency anemia, unspecified Status: Acute (5) Malnutrition: Qualifiers: Malnutrition type: protein-calorie malnutrition Protein-calorie malnutrition severity: moderate Qualified Code(s): E44.0 - Moderate protein-calorie malnutrition Code(s): E46 - Unspecified protein-calorie malnutrition Status: Acute (6) Left-sided weakness: Code(s): R53.1 - Weakness Status: Acute Plan Left sided Weakness 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 Augmentin CTA showing lower atelectasis and 6 mm nodule of the right upper lobe will need follow-up in 6 months CTA negative for PE Sputum cultures pending COVID Supportive care. Decadron 6 mg daily remdesivir for 5 days for patient with high risk for hypoxemia supplemental oxygen as needed to maintain 90% oxygen saturation monitor LFTs daily incentive spirometer while awake DuoNebs initiate antibiotic therapy if suspicion of bacterial guaifenesin scheduled for cough gentle IV hydration keep patient dry D-dimer/CTA Negative for PE PT/OT COPD Bronchodilators. CTA atelectasis likely COPD exacerbation with underlying COVID-19 incentive spirometry while awake. steroids initiated azithromycin 500 x 1 day/250 daily supplemental oxygen therapy to maintain oxygen 92% Anemia Patient with history of anemia HGB 7.1 09/28/2023 Transfuse PRBC if Hgb <7.0 Drop possibly secondary to recent LT hip Surgery Continue iron supplements May need to hold Eliquis 2.5 if hemoglobin continues to drop Malnutrition to the moderate degree secondary to poor protein and calorie intake Dietitian consult And protein shakes HX of LT hip fracture surgery 09/09/2023/PT/OT Code status: Full code per patient DVT prophylaxis: Eliquis 2.5 BID Stress ulcer prophylaxis: Protonix 40 daily PT/OT notes: PT/OT pending Disposition: Patient was admitted to the medical unit with acute respiratory failure with hypoxia secondary to COVID-19 and COPD exacerbation will continue with current treatment PT OT for evaluation plan will likely be for patient to return to [facility] services when medically stable. Also doing TIA/Stroke work-up for left sided deficits. Time Spent With Patient Time with patient: 15 - 25 minutes Subjective Date/time seen: 09/28/23 07:54 Interval history: Admission: his is a pleasant 78-year-old female with chronic obstructive pulmonary disease, Lambert esophagus, gastroesophageal reflux disease, hypertension, and iron deficiency anemia who presented to the emergency department via EMS from [facility] for evaluation of hypoxia. The patient provides the following history. She broke her left hip in a fall on 09/09/2023 which was repaired with hemiarthroplasty at [facility]. During that stay she was also treated for right lower lobe pneumonia and a urinary tract infection. She was discharged to rehab on 09/21/2023 and was diagnosed with COVID the following day. She was reportedly asymptomatic until
[2023-09-28] MEDS: UMECLIDINIUM/VILANTEROL 62.5-25 MCG ELLIPTA 1 PUFF INHALATION (08:35)
[2023-09-28] MEDS: guaiFENesin 12 HR 600 MG TABCR PO ×2 (09:52→20:42)
[2023-09-28] MEDS: FERROUS GLUCONATE 324 MG TABLET BY MOUTH ×2 (09:53→18:31)
[2023-09-28] MEDS: VITAMIN E 100 UNIT CAPSULE PO (09:54)
[2023-09-28] MEDS: APIXABAN 2.5 MG TABLET PO ×2 (09:54→20:42)
[2023-09-28] MEDS: CHOLECALCIFEROL 5,000 UNITS TABLET 5000 UNITS PO (09:54)
[2023-09-28] MEDS: dexAMETHasone SOD PHOS INJ 10 MG/ML 1 ML VIAL 6 MG IV PUSH (09:55)
[2023-09-28] MEDS: ACETAMINOPHEN 325 MG TABLET 650 MG PO ×2 (09:55→18:31)
--- NOTE | 2023-09-28 10:05 | PCOTNOTE ---
Upon entry to room for OT treatment, Patients's manager nursing assisting Patient with needs. Patient is having a Left facial droop and being assessed at this time. Patient unavailable to be seen at this time.
[2023-09-28 13:05] LABS: Cholesterol 150 mg/dL (0-200); HDL Direct 34 mg/dL; Triglycerides 90 mg/dL (<150)
[2023-09-28 13:16] LABS: LDL Cholesterol Direct 81 mg/dL
[2023-09-28] MEDS: ALBUTEROL SULFATE (*SP) AEROSOL 1 PUFF 2 PUFF INHALATION ×2 (13:50→21:00)
--- NOTE | 2023-09-28 14:00 | PCOTNOTE ---
Patient unavailable at this time. PT going in to see Patient at this time. PT stated, she was told Patient has been very sleepy today and going to attempt.
[2023-09-28 14:08] LABS: Hemoglobin A1C 4.7 % (<5.7)
--- NOTE | 2023-09-28 15:44 | PCSTNOTE ---
Please refer to the Modified Barium Swallow Evaluation in the EMR. This 78-year-old female patient completed a modified barium swallow study due new stroke-like symptoms which included L facial droop, labial weakness, and leakage of liquids from the mouth. Patient was admitted on 09/25/23 for evaluation of hypoxia. The pt has a history of Lambert esophagus, chronic obstructive pulmonary disease, HTN, and GERD. Trials of purees and thin liquids via straw/spoon/cup edge were administered. During trials of purees and thin liquids no instances of penetration or aspiration were noted. Pt demonstrated good laryngeal elevation and fair clearance of residue. Upon presentation of mixed consistencies, the pt demonstrated an inability to formulate a cohesive bolus resulting in the expulsion out of the oral cavity. Recommendation: Due to poor bolus preparation, it is recommended that the pt be on an IDDSI Level 0 (thin liquid) and IDDSI Level 4 (Pureed) diet. Skilled ST services are no longer needed. Thank you for this referral.
--- NOTE | 2023-09-28 16:34 | WPDNEUROPN ---
Progress Note: A&P Assessment and Plan (1) Difficulty in swallowing: Code(s): R13.10 - Dysphagia, unspecified Status: Acute (2) Lambert esophagus: Code(s): K22.70 - Lambert's esophagus without dysplasia Status: Acute (3) Gastroesophageal reflux disease: Code(s): K21.9 - Gastro-esophageal reflux disease without esophagitis Status: Acute (4) Chronic obstructive pulmonary disease: Code(s): J44.9 - Chronic obstructive pulmonary disease, unspecified Status: Acute (5) Hypertension: Code(s): I10 - Essential (primary) hypertension Status: Acute (6) Stenosis of right subclavian artery: Code(s): I77.1 - Stricture of artery Status: Acute (7) Cerebral infarction: Code(s): I63.9 - Cerebral infarction, unspecified Status: Acute Plan I reviewed the records and MRI films and would suggest a acetylcholine receptor antibody in B12 folic acid level and vitamin-D level and continue other treatment program as before. She does have history of Lambert's esophagus and GE reflux may wonder if this can contribute to and occasional difficulty in swallowing however her barium swallow study was within normal range. I also did not find any significant additional findings I spoke to the nursing staff and discussed these with them. Thank you very much Subjective Date/time seen: 09/28/23 16:34 Interval history: Patient was seen previously by Dr. Urbina. She is 78 years old transfer from rehab facility where she was admitted due to a previous fall on 09/08 leading to a fracture of the left hip. She was admitted with shortness of breath and was found to have evidence for pneumonia and days he also has onto positive for COVID on 09/22/2023 and is currently in isolation. Patient also suspected of having urinary tract infection. MRI of the brain has shown right frontal infarct. Patient was noted to have difficulties the swallowing this morning eye. As the nursing staff. She was slow in swallowing. They got concerned and had a CT scan of brain done which did not show any additional new finding. A barium swallow was also performed which was within normal range. This time the patient is doing better. No difficulty his speech. Review of Systems Review of Systems: No additional symptoms reported by the patient. Exam Narrative: Fully conscious alert oriented to self time place and person. No aphasia or dysarthria. Cranial nerves on individual testing intact. Motor system normal power and tone in both upper lower limbs. No involuntary movements are seen. Objective Data Vital Signs Vital Signs: Vital Signs - 24 hr 09/27/23 20:20 09/27/23 20:15 09/27/23 20:00 Temperature 36.8 C Pulse Rate 81 81 85 Respiratory Rate 17 17 Blood Pressure 121/66 Pulse Oximetry 100 100 Oxygen Delivery Nasal Cannula Oxygen Flow Rate 1 Fraction of Inspired Oxygen 09/28/23 00:04 09/27/23 20:47 09/28/23 02:42 Temperature Pulse Rate 75 79 83 Respiratory Rate 18 18 Blood Pressure Pulse Oximetry Oxygen Delivery Oxygen Flow Rate Fraction of Inspired Oxygen 09/27/23 20:57 09/28/23 02:32 09/28/23 04:00 Temperature Pulse Rate 81 80 88 Respiratory Rate 18 18 Blood Pressure Pulse Oximetry Oxygen Delivery Oxygen Flow Rate Fraction of Inspired Oxygen 09/28/23 05:12 09/28/23 08:20 09/28/23 08:20 Temperature 36.6 C Pulse Rate 91 88 Respiratory Rate 17 18 Blood Pressure 115/61 Pulse Oximetry 98 99 Oxygen Delivery Room Air Oxygen Flow Rate Fraction of Inspired Oxygen 21 09/28/23 08:36 09/28/23 08:00 09/28/23 10:56 Temperature 36.8 C Pulse Rate 93 102 H 87 Respiratory Rate 18 10 L Blood Pressure 136/81 Pulse Oximetry 98 Oxygen Delivery Oxygen Flow Rate Fraction of Inspired Oxygen 09/28/23 09:50 09/28/23 12:00 09/28/23 13:50 Temperature Pulse Rate 90 84 Resp
[2023-09-28 18:22] LABS: Thyroid Stimulating Hormone 0.882 uIU/mL (0.465-4.680)
[2023-09-28] MEDS: CALCIUM/VITAMIN D 500 MG/5 MCG (200 I.U.) TABLET PO (18:31)
[2023-09-28 19:21] LABS: Folic Acid 18.9 ng/mL (2.76->20); Vitamin B12 > 1000.0 pg/mL (239-931)
[2023-09-28] MEDS: AZITHROMYCIN 500 MG/NS 250 ML 500 MG/250 ML BAG 250 MG IVPB (19:39)
[2023-09-28] MEDS: MIRTAZAPINE 7.5 MG TABLET PO (20:42)
[2023-09-28] MEDS: REMDESIVIR 100 MG/NS 250 ML 100 MG/250 ML BAG 250 MG IVPB (21:42)
[2023-09-29] VITALS (8 sets, daily range): BP systolic 116–131; BP diastolic 74–90; PULSE 83–105; RESP 16–20; TEMP 36.7–37.1; O2SAT 95–100
--- NOTE | 2023-09-29 | ECHO_ITS ---
Patient Info Name: Maryann Rodriguez Age: 78 years : 1945 Gender: Female Ht: 64 in Wt: 91 lbs BSA: 1.35 m2 HR: 92 bpm BP: 136 / 88 mmHg Heart Rhythm: Sinus Rhythm Technical Quality: Good Exam Date: 09/29/2023 9:39 AM Exam Location: Echo Lab Patient Status: Inpatient Admit Date: 09/26/2023 Staff Ordering Physician: Angelica Torrez APRN [place] Ironer: Linnea Pickens RDCS Attending Provider: Angelica Torrez APRN Referring Physician: Shan NUNO; Exam Type: CA echo doppler w bubble study Study Info Indications - TIA Complete two-dimensional, color flow and Doppler transthoracic echocardiogram is performed with agitated saline. Summary 1. Normal left ventricular size and hyperdynamic systolic contractility. 2. Mildly sclerotic aortic valve which is not stenotic. 3. Saline contrast injection demonstrates no shunt. 4. Trivial AI otherwise no valvular dysfunction. Left Ventricle Left ventricular chamber dimension is normal. Left ventricular systolic function is hyperdynamic, estimated at >70%. The left ventricular diastolic function is grade I diastolic dysfunction. Right Ventricle Right ventricular chamber dimension is normal. Left Atria Left atrial chamber dimension is normal. Right Atria Right atrial chamber dimension is normal. Atrial Septum Intact interatrial septum visualized by agitated saline imaging. Aortic Valve The aortic valve is trileaflet. There is mild aortic valve sclerosis. There is trace aortic valve regurgitation. Pulmonic Valve The pulmonic valve is not well visualized. Mitral Valve The mitral valve has normal leaflets. Tricuspid Valve The tricuspid valve leaflets are normal. Pericardium/Pleural The pericardium appears normal. Aorta The aortic root size at the sinus of Valsalva is normal. Left Ventricular Outflow Tract Name Value Normal LVOT Doppler LVOT Peak Gradient 2 mmHg LVOT Mean Gradient 1 mmHg LVOT VTI 13 cm LVOT VTI/AV VTI Ratio 0.8 Pulmonic Valve Name Value Normal PV Doppler PV Peak Gradient 3 mmHg Mitral Valve Name Value Normal MV Doppler MV Decel [place] 334 cm/s2 MV PHT 57 ms MV Area (PHT) 3.8 cm2 4.0-5.0 MV Diastolic Function MV E Peak Velocity 66 cm/s MV A Peak Velocity 73 cm/s MV E/A 0.9 MV Decel Time 198 ms MV Annular TDI MV E/e' (Sep
[2023-09-29] MEDS: ALBUTEROL SULFATE (*SP) AEROSOL 1 PUFF 2 PUFF INHALATION ×3 (02:49→13:00)
[2023-09-29 04:39] LABS: Basophils Percent Auto 0.5 % (0.2-1.2); Eosinophils Percent Auto 0.4 % (0-4.4); Hematocrit 24.4 % (37.0-47.0); Hemoglobin 7.8 g/dL (12.0-15.0); Immature Granulocyte Absolute 0.08 K/mm3 (0.00-0.031); Lymphocytes Absolute Auto 2.24 K/mm3 (0.9-3.2); Mean Corpuscular Hemoglobin 25.2 pg (26-34); Mean Platelet Volume 8.7 fl (7.4-10.4); Monocytes Absolute Auto 1.1 K/mm3 (0.1-0.6); Neutrophils Absolute Auto 4.5 K/mm3 (1.3-6.7); Neutrophils Percent Auto 56.1 % (45.5-73.1); Platelet Count Result 281 k/mm3 (150-375); Red Blood Count 3.09 M/mm3 (4.2-5.4); Red Cell Distribution Width 23.3 % (11.5-14.5)
[2023-09-29 04:51] LABS: Alanine Aminotransferase 30 U/L (6-35); Albumin Level 3.4 g/dL (3.5-5.1); Alkaline Phosphatase 100 U/L (38-126); Anion Gap 11 mmol/L (4-12); Aspartate Amino Transferase 33 U/L (14-36); Bilirubin,Total 0.3 mg/dL (0.2-1.3); Blood Urea Nitrogen 11 mg/dL (7-17); Calcium 8.9 mg/dL (8.4-10.2); Carbon Dioxide 24 mmol/L (22-30); Chloride 102 mmol/L (98-107); Estimated CRCL calculation 41 ml/min; Estimated Glomerular Filt Rate > 60; Glucose 84 mg/dL (65-110); Potassium 3.4 mmol/L (3.4-5.0); Sodium 137 mmol/L (137-145)
[2023-09-29 05:05] LABS: INR 1.4; Prothrombin Time 17.7 Seconds (11.1-14.7)
[2023-09-29 05:09] LABS: Anisocytosis 2+; Hypochromasia 1+; Platelet Estimate Adequate (Adequate); Schistocytes Rare; Target Cells 2+
[2023-09-29] MEDS: UMECLIDINIUM/VILANTEROL 62.5-25 MCG ELLIPTA 1 PUFF INHALATION (07:19)
[2023-09-29] MEDS: guaiFENesin 12 HR 600 MG TABCR PO ×2 (08:21→21:15)
[2023-09-29] MEDS: FERROUS GLUCONATE 324 MG TABLET BY MOUTH (08:21)
[2023-09-29] MEDS: APIXABAN 2.5 MG TABLET PO (08:21)
[2023-09-29] MEDS: PANTOPRAZOLE 40 MG TABLET PO (08:21)
[2023-09-29] MEDS: CALCIUM/VITAMIN D 500 MG/5 MCG (200 I.U.) TABLET PO (08:22)
[2023-09-29] MEDS: MULTIVITAMINS THERAPEUTIC TAB (*BKC) 1 TABLET PO (08:22)
[2023-09-29] MEDS: SENNOSIDES 8.6 MG TABLET 17.2 MG PO (08:22)
[2023-09-29] MEDS: VITAMIN E 100 UNIT CAPSULE PO (08:22)
[2023-09-29] MEDS: CHOLECALCIFEROL 5,000 UNITS TABLET 5000 UNITS PO (08:22)
--- NOTE | 2023-09-29 11:22 | P.DS_ITS ---
DS: Admitting Diagnosis Discharge Date 09/29/2023 Admitting Diagnosis Acute respiratory failure with hypoxia DS: Discharge Diagnosis Discharge Diagnosis (1) Acute respiratory failure with hypoxia: Code(s): J96.01 - Acute respiratory failure with hypoxia Status: Acute (2) Chronic obstructive pulmonary disease: Code(s): J44.9 - Chronic obstructive pulmonary disease, unspecified Status: Acute (3) COVID: Code(s): U07.1 - COVID-19 Status: Acute (4) Iron deficiency anemia: Code(s): D50.9 - Iron deficiency anemia, unspecified Status: Acute (5) Malnutrition: Qualifiers: Malnutrition type: protein-calorie malnutrition Protein-calorie malnutrition severity: moderate Qualified Code(s): E44.0 - Moderate protein- calorie malnutrition Code(s): E46 - Unspecified protein-calorie malnutrition Status: Acute (6) Left-sided weakness: Code(s): R53.1 - Weakness Status: Acute Plan Left sided Weakness * 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 Augmentin * CTA showing lower atelectasis and 6 mm nodule of the right upper lobe will need follow-up in 6 months * CTA negative for PE * Sputum cultures pending COVID * Supportive care. * Decadron 6 mg daily * remdesivir for 5 days for patient with high risk for hypoxemia * supplemental oxygen as needed to maintain 90% oxygen saturation * monitor LFTs daily * incentive spirometer while awake * DuoNebs * initiate antibiotic therapy if suspicion of bacterial * guaifenesin scheduled for cough * gentle IV hydration keep patient dry * D-dimer/CTA Negative for PE * PT/OT COPD * Bronchodilators. * CTA atelectasis likely COPD exacerbation with underlying COVID-19 * incentive spirometry while awake. * steroids initiated * azithromycin 500 x 1 day/250 daily * supplemental oxygen therapy to maintain oxygen 92% Anemia * Patient with history of anemia * HGB 7.1 09/28/2023 * Transfuse PRBC if Hgb <7.0 * Drop possibly secondary to recent LT hip Surgery * Continue iron supplements * May need to hold Eliquis 2.5 if hemoglobin continues to drop Malnutrition to the moderate degree secondary to poor protein and calorie intake * Dietitian consult * And protein shakes HX of LT hip fracture surgery 09/09/2023/PT/OT Code status: Full code per patient DVT prophylaxis: Eliquis 2.5 BID Stress ulcer prophylaxis: Protonix 40 daily PT/OT notes: PT/OT pending Disposition: Patient was admitted to the medical unit with acute respiratory failure with hypoxia secondary to COVID-19 and COPD exacerbation will continue with current treatment PT OT for evaluation plan will likely be for patient to return to [facility] services when medically stable. Also doing TIA/Stroke work-up for left sided deficits. DS: Summary Hospital Course Reason for hospitalization: Acute respiratory failure with hypoxia Hospital Course:
--- NOTE | 2023-09-29 11:22 | PM.DS ---
DS: Admitting Diagnosis Discharge Date 09/29/2023 Admitting Diagnosis Acute respiratory failure with hypoxia DS: Discharge Diagnosis Discharge Diagnosis (1) Acute respiratory failure with hypoxia: Code(s): J96.01 - Acute respiratory failure with hypoxia Status: Acute (2) Chronic obstructive pulmonary disease: Code(s): J44.9 - Chronic obstructive pulmonary disease, unspecified Status: Acute (3) COVID: Code(s): U07.1 - COVID-19 Status: Acute (4) Iron deficiency anemia: Code(s): D50.9 - Iron deficiency anemia, unspecified Status: Acute (5) Malnutrition: Qualifiers: Malnutrition type: protein-calorie malnutrition Protein-calorie malnutrition severity: moderate Qualified Code(s): E44.0 - Moderate protein-calorie malnutrition Code(s): E46 - Unspecified protein-calorie malnutrition Status: Acute (6) Left-sided weakness: Code(s): R53.1 - Weakness Status: Acute Plan Left sided Weakness 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 Augmentin CTA showing lower atelectasis and 6 mm nodule of the right upper lobe will need follow-up in 6 months CTA negative for PE Sputum cultures pending COVID Supportive care. Decadron 6 mg daily remdesivir for 5 days for patient with high risk for hypoxemia supplemental oxygen as needed to maintain 90% oxygen saturation monitor LFTs daily incentive spirometer while awake DuoNebs initiate antibiotic therapy if suspicion of bacterial guaifenesin scheduled for cough gentle IV hydration keep patient dry D-dimer/CTA Negative for PE PT/OT COPD Bronchodilators. CTA atelectasis likely COPD exacerbation with underlying COVID-19 incentive spirometry while awake. steroids initiated azithromycin 500 x 1 day/250 daily supplemental oxygen therapy to maintain oxygen 92% Anemia Patient with history of anemia HGB 7.1 09/28/2023 Transfuse PRBC if Hgb <7.0 Drop possibly secondary to recent LT hip Surgery Continue iron supplements May need to hold Eliquis 2.5 if hemoglobin continues to drop Malnutrition to the moderate degree secondary to poor protein and calorie intake Dietitian consult And protein shakes HX of LT hip fracture surgery 09/09/2023/PT/OT Code status: Full code per patient DVT prophylaxis: Eliquis 2.5 BID Stress ulcer prophylaxis: Protonix 40 daily PT/OT notes: PT/OT pending Disposition: Patient was admitted to the medical unit with acute respiratory failure with hypoxia secondary to COVID-19 and COPD exacerbation will continue with current treatment PT OT for evaluation plan will likely be for patient to return to [facility] rehab services when medically stable. Also doing TIA/Stroke work-up for left sided deficits. DS: Summary Hospital Course Reason for hospitalization: Acute respiratory failure with hypoxia Hospital Course: Admission: his is a pleasant 78-year-old female with chronic obstructive pulmonary disease, Lambert esophagus, gastroesophageal reflux disease, hypertension, and iron deficiency anemia who presented to the emergency department via EMS from [facility] for evaluation of hypoxia. The patient provides the following history. She broke her left hip in a fall on 09/09/2023 which was repaired with hemiarthroplasty at [facility]. During that stay she was also treated for right lower lobe pneumonia and a urinary tract infection. She was discha
--- NOTE | 2023-09-29 16:32 | P.PNIM_ITS ---
Progress Note: A&P Assessment and Plan (1) Acute respiratory failure with hypoxia: Code(s): J96.01 - Acute respiratory failure with hypoxia Status: Acute (2) Chronic obstructive pulmonary disease: Code(s): J44.9 - Chronic obstructive pulmonary disease, unspecified Status: Acute (3) COVID: Code(s): U07.1 - COVID-19 Status: Acute (4) Iron deficiency anemia: Code(s): D50.9 - Iron deficiency anemia, unspecified Status: Acute (5) Malnutrition: Qualifiers: Malnutrition type: protein-calorie malnutrition Protein-calorie malnutrition severity: moderate Qualified Code(s): E44.0 - Moderate protein- calorie malnutrition Code(s): E46 - Unspecified protein-calorie malnutrition Status: Acute (6) Left-sided weakness: Code(s): R53.1 - Weakness Status: Acute Plan Left sided Weakness * 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 Augmentin * CTA showing lower atelectasis and 6 mm nodule of the right upper lobe will need follow-up in 6 months * CTA negative for PE * Sputum cultures pending COVID * Supportive care. * Decadron 6 mg daily * remdesivir for 5 days for patient with high risk for hypoxemia * supplemental oxygen as needed to maintain 90% oxygen saturation * monitor LFTs daily * incentive spirometer while awake * DuoNebs * initiate antibiotic therapy if suspicion of bacterial * guaifenesin scheduled for cough * gentle IV hydration keep patient dry * D-dimer/CTA Negative for PE * PT/OT COPD * Bronchodilators. * CTA atelectasis likely COPD exacerbation with underlying COVID-19 * incentive spirometry while awake. * steroids initiated * azithromycin 500 x 1 day/250 daily * supplemental oxygen therapy to maintain oxygen 92% Anemia * Patient with history of anemia * HGB 7.1 09/28/2023 * Transfuse PRBC if Hgb <7.0 * Drop possibly secondary to recent LT hip Surgery * Continue iron supplements * May need to hold Eliquis 2.5 if hemoglobin continues to drop Malnutrition to the moderate degree secondary to poor protein and calorie intake * Dietitian consult * And protein shakes HX of LT hip fracture surgery 09/09/2023/PT/OT Code status: Full code per patient DVT prophylaxis: Eliquis 2.5 BID Stress ulcer prophylaxis: Protonix 40 daily PT/OT notes: PT/OT pending Disposition: Patient was admitted to the medical unit with acute respiratory failure with hypoxia secondary to COVID-19 and COPD exacerbation will continue with current treatment PT OT for evaluation plan will likely be for patient to return to [facility] rehab services when medically stable. Also doing TIA/Stroke work-up for left sided deficits. Subjective Date/time seen: 09/29/23 16:32 Interval history: Admission: his is a pleasant 78-year-old female with chronic obstructive pulmonary disease, Lambert esophagus, gastroesophageal reflux disease, hypertension, and iron deficiency anemia who present
--- NOTE | 2023-09-29 16:32 | PM.IMPN ---
Progress Note: A&P Assessment and Plan (1) Acute respiratory failure with hypoxia: Code(s): J96.01 - Acute respiratory failure with hypoxia Status: Acute (2) Chronic obstructive pulmonary disease: Code(s): J44.9 - Chronic obstructive pulmonary disease, unspecified Status: Acute (3) COVID: Code(s): U07.1 - COVID-19 Status: Acute (4) Iron deficiency anemia: Code(s): D50.9 - Iron deficiency anemia, unspecified Status: Acute (5) Malnutrition: Qualifiers: Malnutrition type: protein-calorie malnutrition Protein-calorie malnutrition severity: moderate Qualified Code(s): E44.0 - Moderate protein-calorie malnutrition Code(s): E46 - Unspecified protein-calorie malnutrition Status: Acute (6) Left-sided weakness: Code(s): R53.1 - Weakness Status: Acute Plan Left sided Weakness 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 Augmentin CTA showing lower atelectasis and 6 mm nodule of the right upper lobe will need follow-up in 6 months CTA negative for PE Sputum cultures pending COVID Supportive care. Decadron 6 mg daily remdesivir for 5 days for patient with high risk for hypoxemia supplemental oxygen as needed to maintain 90% oxygen saturation monitor LFTs daily incentive spirometer while awake DuoNebs initiate antibiotic therapy if suspicion of bacterial guaifenesin scheduled for cough gentle IV hydration keep patient dry D-dimer/CTA Negative for PE PT/OT COPD Bronchodilators. CTA atelectasis likely COPD exacerbation with underlying COVID-19 incentive spirometry while awake. steroids initiated azithromycin 500 x 1 day/250 daily supplemental oxygen therapy to maintain oxygen 92% Anemia Patient with history of anemia HGB 7.1 09/28/2023 Transfuse PRBC if Hgb <7.0 Drop possibly secondary to recent LT hip Surgery Continue iron supplements May need to hold Eliquis 2.5 if hemoglobin continues to drop Malnutrition to the moderate degree secondary to poor protein and calorie intake Dietitian consult And protein shakes HX of LT hip fracture surgery 09/09/2023/PT/OT Code status: Full code per patient DVT prophylaxis: Eliquis 2.5 BID Stress ulcer prophylaxis: Protonix 40 daily PT/OT notes: PT/OT pending Disposition: Patient was admitted to the medical unit with acute respiratory failure with hypoxia secondary to COVID-19 and COPD exacerbation will continue with current treatment PT OT for evaluation plan will likely be for patient to return to [facility] services when medically stable. Also doing TIA/Stroke work-up for left sided deficits. Subjective Date/time seen: 09/29/23 16:32 Interval history: Admission: his is a pleasant 78-year-old female with chronic obstructive pulmonary disease, Lambert esophagus, gastroesophageal reflux disease, hypertension, and iron deficiency anemia who presented to the emergency department via EMS from [facility] for evaluation of hypoxia. The patient provides the following history. She broke her left hip in a fall on 09/09/2023 which was repaired with hemiarthroplasty at [facility]. During that stay she was also treated for right lower lobe pneumonia and a urinary tract infection. She was discharged to rehab on 09/21/2023 and was diagnosed with COVID the following day. She was reportedly asymptomatic until today she developed respiratory distress and was hypoxic with
--- NOTE | 2023-09-29 19:57 | PM.EVENT ---
Event Note Event Note Event Note: Cross Coverage 09/26: Patient reported right hand weakness on 09/25 but reported it to the provider on 09/26. MRI was obtained and Neurology was consulted. Brain MRI w/o con showed: No acute abnormality. 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 Severe degenerative spondylosis of the visualized cervical spine, with probable multilevel spinal canal stenosis throughout the cervical spine. Consider dedicated C-spine MR to further evaluate, as indicated. Per neuro exam patient had generally discrete strength 4-5/5 in upper and lower extremities proximally and distally. Recommended further evaluation of right subclavian artery stenosis once stable/improved. 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 Facial droop, dysarthria, and dysphagia lasted for approximately 20-30 minutes. Left hand decreased security systems integrator strength and dexterity have remained persistent. CT head non con was obtained which showed an old infarct in the right frontal lobe. Neurology assessed patient who obtained a barium swallow which was within normal range. No deficits on exam per Neurology note at 4:34 p.m. 09/28: Nursing staff reached out to [facility]bo nurse practitioner with new neurological findings at 5:45 p.m. Per nursing staff report, patient last seen well at 4:30 p.m. It was then discovered at 5:45 p.m. that the patient patient developed a left lower facial droop with no involvement of the upper face, dysarthria, and observed dysphagia. CTA of the head and neck ordered by bebo AHUMADA which showed: 1. Small amount of atherosclerotic plaque with 0% stenosis of the right carotid bulb relative to normal distal artery lumen diameter (NASCET criteria). There is however a 2.8 x 0.4 x 0.4 cm intraluminal thrombus adherent to the plaque which extends distally along the right internal carotid artery and likely represents the etiology of thrombus occluding a branch of the right middle cerebral artery with associated acute infarct in the right frontoparietal region. Dr. Weaver discussed these findings with Dr. Torrez at 6:35 PM. 2. 75% stenosis of the left carotid bulb relative to normal distal artery lumen diameter. 3. 80-90% stenosis at the proximal aspect of an aberrant retroesophageal right subclavian artery. 4. 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 5. Small old infarct in the right frontal lobe. 6. Indeterminate 1.5 cm round glass opacity with central cavitation in the right upper lobe which could be infectious or malignant in etiology. Recommend 3 month follow-up low-dose noncontrast chest CT . Emergent call to [facility] stroke team was initiated. Spoke with Anjelica PALMER who recommended transfer to their step-down unit, discontinuing Eliquis, and initiating heparin at 12 u/kg/hr without boluses. If PTT >100 then decrease gtt by 1 u/kg, if PTT >120 decrease gtt by 3 u/kg and hold infusion for 1 hour. The patient is currently on [facility] wait list. Additional call made to [facility] Stroke Team, Howard PALMER, who agreed to transfer of patient as well without further recommendations. The patient is also on [facility] wait list. Awaiting transfer. Q2H neurochecks in interim. Discussed this with patient and her daughter. Per daughter, baseline prior to hip fracture was mobile with cane and would utilize a wheelchair if she had to walk long distances. Living independently with daughter to help occasionally with cooking and errands (per daughter done more so to be helpful but the patient could do these things on her own) and was driving until late last year. They are unsure when the Eliquis was initiated, suspect this was DVT prophylaxis post-hip surgery. NIHSS 1a: Level of Co
[2023-09-29 20:23] LABS: INR 1.3; Prothrombin Time 16.7 Seconds (11.1-14.7)
[2023-09-29] MEDS: MIRTAZAPINE 7.5 MG TABLET PO (21:15)
[2023-09-29] MEDS: AZITHROMYCIN 500 MG/NS 250 ML 500 MG/250 ML BAG 250 MG IVPB (21:16)
[2023-09-29] MEDS: REMDESIVIR 100 MG/NS 250 ML 100 MG/250 ML BAG 250 MG IVPB (21:16)
[2023-09-29] MEDS: HEPARIN SOD/D5W 100 UNITS/ML 25,000 UNITS/250 ML BAG IV CONT (21:26)
[2023-09-30] MEDS: ALBUTEROL SULFATE (*SP) AEROSOL 1 PUFF 2 PUFF INHALATION (03:16)
[2023-09-30 03:50] VITALS: BP 140/81; PULSE 90; RESP 20; TEMP 37.3; O2SAT 98
[2023-09-30 04:39] LABS: INR 1.3; Prothrombin Time 16.3 Seconds (11.1-14.7)
[2023-09-30 04:40] LABS: Partial Thromboplastin Time 37.7 Seconds (22.3-36.8)
[2023-09-30 13:28] LABS: Pneumococcal Antigen Urine NOT DETECTED
[2023-10-02 08:08] LABS: Methylmalonic Acid 141 nmol/L (85-423)
[2023-10-03 03:54] LABS: Legionella pneumophila Ag Ur NOT DETECTED
[2023-10-03 18:13] LABS: Mycoplasma IgM Antibody Titer 921 U/mL
--- NOTE | 2023-10-05 17:39 | PM.TDS ---
Transfer Discharge Sum: Prov Provider Date of admission: 09/26/23 09:07 Primary care physician: PHYSICIAN NOT ON STAFF Admitting clinician: Zamzam Jones MD Attending physician on admission: Zamzam Jones Consults: 09/27/23 Consult to Physician Routine Comment: LVM 12:24pm (-US) Consulting Provider: Garry Urbina bilingual call center representative/MD group to consult: neurology Reason for consultation: weakness Has provider been notified: Yes 09/28/23 Consult to Dietitian Routine Reason for Consult:: Malnutrition Attending physician on discharge: Zamzam Jones Discharging clinician: Shama Thomas Anticipated date of transfer: 09/30/23 Receiving physician/facility: [facility])Anjelica MD DS: Admitting Diagnosis Discharge Date 09/30/23 Admitting Diagnosis Acute respiratory failure with hypoxia, COVID DS: Discharge Diagnosis Discharge Diagnosis Plan Acute respiratory failure hypoxia, COVID, left sided weakness Discharge condition: Stable Transfer Discharge Sum: Med Medications Active and Home Medications: Home Medications albuterol sulfate 90 mcg/actuation aerosol inhaler 2 puff inhalation Q4H PRN Shortness Of Breath 09/21/23 [History Confirmed 10/03/23] apixaban 2.5 mg tablet 2.5 mg PO BID 09/21/23 [History Confirmed 10/03/23] cholecalciferol (vitamin D3) 125 mcg (5,000 unit) tablet 125 mcg PO DAILY 09/21/23 [History Confirmed 10/03/23] glycopyrrolate 9 mcg-formoterol 4.8 mcg HFA aerosol inhaler 2 puff inhalation BID 09/21/23 [History Confirmed 10/03/23] mirtazapine 7.5 mg tablet 7.5 mg PO HS 09/21/23 [History Confirmed 10/03/23] pantoprazole 40 mg tablet,delayed release 40 mg PO QAM 09/21/23 [History Confirmed 10/03/23] polyethylene glycol 3350 17 gram oral powder packet (Miralax) 17 g PO BID 09/21/23 [History Confirmed 10/03/23] sennosides 17.2 mg tablet 17.2 mg PO BID 09/21/23 [History Confirmed 10/03/23] aspirin 81 mg chewable tablet 81 mg PO DAILY 10/03/23 [History Confirmed 10/03/23] atorvastatin 40 mg tablet 40 mg PO HS 10/03/23 [History Confirmed 10/03/23] Transfer Discharge Sum: Hosp Hospital Course Hospital course: Initially here for acute respiratory failure with hypoxia secondary to COVID. Improving, anticipated discharge to rehab facility. However on 09/28, nursing staff reached out to [facility] nurse practitioner with new neurological findings at 5:45 p.m. Per nursing staff report, patient last seen well at 4:30 p.m. It was then discovered at 5:45 p.m. that the patient patient developed a left lower facial droop with no involvement of the upper face, dysarthria, and observed dysphagia. CTA of the head and neck ordered by bebo RN MANAGED CARE which showed: 1. Small amount of atherosclerotic plaque with 0% stenosis of the right carotid bulb relative to normal distal artery lumen diameter (NASCET criteria). There is however a 2.8 x 0.4 x 0.4 cm intraluminal thrombus adherent to the plaque which extends distally along the right internal carotid artery and likely represents the etiology of thrombus occluding a branch of the right middle cerebral artery with associated acute infarct in the right frontoparietal region. Dr. Weaver discussed these findings with Dr. Torrez at 6:35 PM. 2. 75% stenosis of the left carotid bulb relative to normal distal artery lumen diameter. 3. 80-90% stenosis at the proximal aspect of an aberrant retroesophageal right subclavian artery. 4. 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 5. Small old infarct in the right frontal lobe. 6. Indeterminate 1.5 cm round glass opacity with central cavitation in the right upper lobe which could be infectious or malignant in etiology. Recommend 3 month follow-up low-dose noncontrast chest CT . Emergent call to [facility] stroke team was initiated. Spoke with Anjelica PALMER who recommended transfer to [facility]
== END 2023-09-30 04:23 | DRG 177 ==
LOC: ANHED 18:22 → ANH2MED 18:48
PROVIDERS: Emergency Medicine; Hospitalist; Nurse Practitioner Family; Physician Assistant; Psychiatry & Neurology Neurology; Admitting Provider General Practice; Emergency Provider Emergency Medicine; Visit Provider Student in an Organized Health Care Education/Training Program
DX: U07.1 COVID-19 (principal); J18.9 Pneumonia, unspecified organism; J96.01 Acute respiratory failure with hypoxia; Z68.1 Body mass index [BMI] 19.9 or less, adult; J44.1 Chronic obstructive pulmonary disease with (acute) exacerbation; E44.0 Moderate protein-calorie malnutrition; M85.80 Other specified disorders of bone density and structure, unspecified site; M47.812 Spondylosis without myelopathy or radiculopathy, cervical region; M48.02 Spinal stenosis, cervical region; K21.9 Gastro-esophageal reflux disease without esophagitis; D50.9 Iron deficiency anemia, unspecified; R91.1 Solitary pulmonary nodule; Z98.42 Cataract extraction status, left eye; Z98.41 Cataract extraction status, right eye; Z90.49 Acquired absence of other specified parts of digestive tract; Z96.642 Presence of left artificial hip joint; R29.810 Facial weakness; R47.1 Dysarthria and anarthria; R13.10 Dysphagia, unspecified
CPT/HCPCS: 36415; 70250; 70450; 70496; 70498; 70551; 71045; 71275; 80048; 80053; 80061; 80076; 81001; 82306; 82607; 82728; 82746; 83036; 83615; 83735; 83921; 84443; 85025; 85027; 85610; 85730; 86140; 86738; 87449; 87637; 87641; 87899; 92611; 93005; 93306; 94640; 94667; 96365; 96367; 96375; 97110; 97161; 97165; 97530; 99285; A9270; G0378; J0248; J0456; J0696; J1100; J1644; J8540; Q9967

== ENCOUNTER 2023-10-18 10:02 | Day surgery (SDC) | payer MEDICARE, SELFPAY ==
--- NOTE | 2023-10-16 12:42 | PC.NURSE ---
Information obtained from patient record and reviewed with charge nurse Daiana at [facility]. Reviewed instructions- Npo after midnight 10/17/2023. to hold Eliquis now until after procedure per Peace Fernandez/Dr. Haji. Pt will come by ambulance and daughter Julieth plans to meet her here with arrival at 1000.
[2023-10-18 10:13] VITALS: BMI 15.9
[2023-10-18 10:14] VITALS: BP 108/82; PULSE 89; RESP 18; TEMP 36; O2SAT 100
--- NOTE | 2023-10-18 10:16 | SUR.PREOP ---
Spoke with RN at [facility], states her eliquis has been held since the . Also verified NPO status since midnight.
[2023-10-18] MEDS: LACTATED RINGERS 1,000 ML 150 ML IV CONT (10:38)
[2023-10-18] MEDS: ceFAZolin 1 GM/NS 50 ML 1 GM/50 ML BAG IVPB (10:39)
--- NOTE | 2023-10-18 10:48 | WPDANESEPPF ---
Anes - Initial Pre Proc Eval Procedure: Operation Date: 10/18/23 12:00 Proposed Procedures p Percutaneous Endoscopic Gastrostomy - Jl Sweet MD Date/Time: 10/18/23 10:48 Surgeon: Jl Sweet MD Pre Op Diagnosis: failed swallow test Patient Data Age: 78 Gender: F Height: 1.63 m Weight: 42 kg Last Vital Signs Temp 96.8 F L 10/18/23 10:14 Pulse 89 10/18/23 10:14 Resp 18 10/18/23 10:14 BP 108/82 10/18/23 10:14 Pulse Ox 100 10/18/23 10:14 O2 Del Method Room Air 10/18/23 10:14 Allergies Allergy/AdvReac Type Severity Reaction Status Date / Time No Known Allergies Allergy Verified 10/18/23 10:12 Home Medications Medication Instructions Recorded Confirmed Type albuterol sulfate 90 mcg/actuation 2 puff inhalation Q4H PRN 09/21/23 10/18/23 History aerosol inhaler Shortness Of Breath apixaban 2.5 mg tablet 2.5 mg PO BID 09/21/23 10/18/23 History cholecalciferol (vitamin D3) 125 125 mcg PO DAILY 09/21/23 10/18/23 History mcg (5,000 unit) tablet pantoprazole 40 mg tablet,delayed 40 mg PO QAM 09/21/23 10/18/23 History release polyethylene glycol 3350 17 gram 17 g PO BID 09/21/23 10/18/23 History oral powder packet (Miralax) sennosides 17.2 mg tablet 17.2 mg PO BID 09/21/23 10/18/23 History aspirin 81 mg chewable tablet 81 mg PO DAILY 10/03/23 10/18/23 History atorvastatin 40 mg tablet 40 mg PO HS 10/03/23 10/18/23 History Os-Rustam 500 + D3 1 tab-cap PO BID 10/16/23 10/18/23 History acetaminophen 650 mg tablet 650 mg PO Q4H PRN Pain (Scale 10/16/23 10/18/23 History Score 1-3) fluticasone propionate 50 2 spray intranasal DAILY 10/16/23 10/18/23 History mcg/actuation nasal spray,suspension lidocaine 4 % topical patch 1 patch topical DAILY Pain 10/16/23 10/18/23 History (Aspercreme (lidocaine)) mirtazapine 15 mg tablet 15 mg PO HS 10/16/23 10/18/23 History ondansetron HCl 4 mg tablet 4 mg PO Q6H PRN Nausea And Vomiting 10/16/23 10/18/23 History umeclidinium 62.5 mcg-vilanterol 1 inh inhalation DAILY 10/16/23 10/18/23 History 25 mcg/actuation powdr for inhalation Patient hx anesthesia problems: none Family hx anesthesia problems: none Results Review: All pre-operative results and documents have been reviewed as part of the pre-operative evaluation. [facility] Past Medical History Medical History (Updated 10/09/23 @ 15:58 by Tess Lewis MD) Lambert esophagus Cerebral infarction Chronic obstructive pulmonary disease Difficulty in swallowing Gastroesophageal reflux disease Hypertension Iron deficiency anemia Right upper lobe pulmonary nodule 6 mm solid nodule and 1.5 to 2 cm ground-glass nodule in the right upper lobe. Sickle cell trait Surgical History Surgical History History of appendectomy History of bilateral cataract extraction History of left hip hemiarthroplasty (08/2023) Family History Family History Mother Hypertension Asthma Cancer Glaucoma Father Cancer Hypertension Diabetes mellitus Social History Social History Social History: Surrogate medical decision maker: Julieth Rodriguez, daughter. Code status: Full code. Smoking status: Former smoker Alcohol intake: former Substance use: never Substance use type: does not use Do You Feel Safe in your Home?: Yes Lack of Transportation: No Lack of Food: Never True Current Housing: I Have Housing Concerned About Future Housing: No Difficulty Paying Gas/Electric Bills: No Difficulty Paying for Meds: No Currently Unemployed: No Education: Bachelor's Degree Difficulty w/ Childcare or Family Care: No Living arrangements: other Additional living arrangements comments: REHAB. FACILITY Spiritual care concerns: No Anes - Eval Final PreProcedure Day of Proce
--- NOTE | 2023-10-18 11:07 | PM.HPGS ---
History of Present Illness History of Present Illness Consent: Risks, benefits, and alternatives have been discussed and questions answered. Patient agrees to proceed with procedure. Chief complaint: failed swallow test Narrative: Maryann Rodriguez is a 78 year old female with CVA and now difficulty swallowing because of the same, currently she is staying in rehab. Here for PEG placement, several family members at bedside. Review of Systems Review of Systems: All systems reviewed & are unremarkable except as noted in HPI and below PMFSH Past Medical History Medical History (Updated 10/09/23 @ 15:58 by Tess Lewis MD) Lambert esophagus Cerebral infarction Chronic obstructive pulmonary disease Difficulty in swallowing Gastroesophageal reflux disease Hypertension Iron deficiency anemia Right upper lobe pulmonary nodule 6 mm solid nodule and 1.5 to 2 cm ground-glass nodule in the right upper lobe. Sickle cell trait Surgical History Surgical History History of appendectomy History of bilateral cataract extraction History of left hip hemiarthroplasty (08/2023) Family History Family History Mother Hypertension Asthma Cancer Glaucoma Father Cancer Hypertension Diabetes mellitus Social History Social History Social History: Surrogate medical decision maker: Julieth Rodriguez, daughter. Code status: Full code. Smoking status: Former smoker Alcohol intake: former Substance use: never Substance use type: does not use Do You Feel Safe in your Home?: Yes Lack of Transportation: No Lack of Food: Never True Current Housing: I Have Housing Concerned About Future Housing: No Difficulty Paying Gas/Electric Bills: No Difficulty Paying for Meds: No Currently Unemployed: No Education: Bachelor's Degree Difficulty w/ Childcare or Family Care: No Living arrangements: other Additional living arrangements comments: REHAB. FACILITY Spiritual care concerns: No Meds Home Medications and Allergies Home Medications Medication Instructions Recorded Confirmed Type albuterol sulfate 90 mcg/actuation 2 puff inhalation Q4H PRN 09/21/23 10/18/23 History aerosol inhaler Shortness Of Breath apixaban 2.5 mg tablet 2.5 mg PO BID 09/21/23 10/18/23 History cholecalciferol (vitamin D3) 125 125 mcg PO DAILY 09/21/23 10/18/23 History mcg (5,000 unit) tablet pantoprazole 40 mg tablet,delayed 40 mg PO QAM 09/21/23 10/18/23 History release polyethylene glycol 3350 17 gram 17 g PO BID 09/21/23 10/18/23 History oral powder packet (Miralax) sennosides 17.2 mg tablet 17.2 mg PO BID 09/21/23 10/18/23 History aspirin 81 mg chewable tablet 81 mg PO DAILY 10/03/23 10/18/23 History atorvastatin 40 mg tablet 40 mg PO HS 10/03/23 10/18/23 History Os-Rustam 500 + D3 1 tab-cap PO BID 10/16/23 10/18/23 History acetaminophen 650 mg tablet 650 mg PO Q4H PRN Pain (Scale 10/16/23 10/18/23 History Score 1-3) fluticasone propionate 50 2 spray intranasal DAILY 10/16/23 10/18/23 History mcg/actuation nasal spray,suspension lidocaine 4 % topical patch 1 patch topical DAILY Pain 10/16/23 10/18/23 History (Aspercreme (lidocaine)) mirtazapine 15 mg tablet 15 mg PO HS 10/16/23 10/18/23 History ondansetron HCl 4 mg tablet 4 mg PO Q6H PRN Nausea And Vomiting 10/16/23 10/18/23 History umeclidinium 62.5 mcg-vilanterol 1 inh inhalation DAILY 10/16/23 10/18/23 History 25 mcg/actuation powdr for inhalation Allergies Allergy/AdvReac Type Severity Reaction Status Date / Time No Known Allergies Allergy Verified 10/18/23 10:12 Vital Signs Vital Signs - 24 hr 10/18/23 10:14 Temperature 96.8 F L Pulse Rate 89 Respiratory Rate 18 Blood Pressure 108/82 Pulse Oximetry 100 Oxygen Delivery Room Air Exam Const: General: comfortab
[2023-10-18] MEDS: LIDOCAINE HCL 1% LOCAL INJ 20 ML VIAL 4.5 ML INFILTRATE (11:37)
[2023-10-18 11:41] VITALS: BP 98/58; PULSE 82; RESP 22; O2SAT 95
--- NOTE | 2023-10-18 11:50 | SUR.PHASEII ---
I spoke with charge accounts audit clerk and gave report. No questions at this time. Informed on when to start feedings on product safety tester recommendations and restart blood thinner in two days. I also called the ambulance service and told them we would be ready to discharge her at 1215. Family updated.
[2023-10-18 11:51] VITALS: BP 115/70; PULSE 81; RESP 23; O2SAT 100
[2023-10-18 12:01] VITALS: BP 131/83; PULSE 80; RESP 24; O2SAT 100
--- NOTE | 2023-10-18 12:12 | SUR.PHASEII ---
PEG site clean, dry, and intact.
--- NOTE | 2023-10-18 12:47 | SUR.PHASEII ---
1245 I informed housekeeping aide that ambulance transport is complete.
== END 2023-10-18 12:44 ==
PROVIDERS: Visit Provider Internal Medicine Gastroenterology
PROC: 0DH63UZ Insertion of Feeding Device into Stomach, Percutaneous Approach (ICD-10-PCS; CPT 43246; principal; 2023-10-18 12:00)
DX: I69.391 Dysphagia following cerebral infarction (principal); R13.19 Other dysphagia; I69.354 Hemiplegia and hemiparesis following cerebral infarction affecting left non-dominant side; I10 Essential (primary) hypertension; J44.9 Chronic obstructive pulmonary disease, unspecified; K21.9 Gastro-esophageal reflux disease without esophagitis; D50.9 Iron deficiency anemia, unspecified; K22.70 Barrett's esophagus without dysplasia; Z79.51 Long term (current) use of inhaled steroids; Z79.01 Long term (current) use of anticoagulants; Z79.82 Long term (current) use of aspirin; Z98.890 Other specified postprocedural states; Z87.891 Personal history of nicotine dependence; Z80.9 Family history of malignant neoplasm, unspecified
CPT/HCPCS: 43246; J0690; J2704; J7120